=== PATIENT | female | born 1950 | race Caucasian/White ===

== ENCOUNTER 2018-11-30 14:03 | Emergency (ER) | payer MEDICARE, OTHER ==
--- NOTE | 2018-11-30 14:40 | EDM.PDOC ---
ED HPI GENERAL MEDICAL PROBLEM - General Chief Complaint: Fever Stated Complaint: HIGH FEVER Time Seen by Provider: 11/30/18 14:20 Source of Information: Reports: Patient, Family History Limitations: Reports: No Limitations - History of Present Illness INITIAL COMMENTS - FREE TEXT/NARRATIVE: 68-year-old female received chemotherapy 2 days ago, and today she has a temperature of 101. She was informed by the clinic to come to the emergency room. She is somewhat upset because she had the same thing happened to her 2 days after her chemotherapy last week, and it resolved without treatment. She has no symptoms of infection such as dysuria, cough, shortness of breath, rhinitis, diarrhea or abdominal pain. No rashes or redness of the skin. Associated Symptoms: Reports: Fever/Chills. 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: Musculoskeletal History: Reports: Arthritis Neurological History: Reports: TIA Other Neuro History: TIA 2017 Oncologic (Cancer) History: Reports: Breast, Pancreatic - Infectious Disease History Infectious Disease History: Reports: Chicken Pox, Measles, Mumps, Pertussis ( Whooping Cough), Shingles, Other (See Below) Other Infectious Disease History: polio - Past Surgical History Head Surgeries/Procedures: Reports: None HEENT Surgical History: Reports: Adenoidectomy, Cataract Surgery, Tonsillectomy Cardiovascular Surgical History: Reports: None GI Surgical History: Reports: Colonoscopy Neurological Surgical History: Reports: Other (See Below) Musculoskeletal Surgical History: Reports: Arthroscopic Knee, Hip Replacement, Shoulder Surgery, Other (See Below) Other Musculoskeletal Surgeries/Procedures:: ankles, toes Oncologic Surgical History: Reports: Biopsy of Breast, Lumpectomy Dermatological Surgical History: Reports: None Social & Family History - Tobacco Use Smoking Status *Q: Former Smoker Used Tobacco, but Quit: Yes Month/Year Tobacco Last Used: 1996 Second Hand Smoke Exposure: No - Caffeine Use Caffeine Use: Reports: Soda - Recreational Drug Use Recreational Drug Use: No ED ROS GENERAL - Review of Systems Review Of Systems: See Below Constitutional: Reports: Fever, Chills. Denies: Malaise HEENT: Reports: No Symptoms Respiratory: Reports: No Symptoms GI/Abdominal: Reports: No Symptoms : Reports: No Symptoms Skin: Reports: No Symptoms Neurological: Reports: No Symptoms. Denies: Headache ED EXAM, GENERAL - Physical Exam Exam: See Below Exam Limited By: No Limitations General Appearance: Alert, No Apparent Distress Eye Exam: Bilateral Eye: EOMI Head: Atraumatic Respiratory/Chest: No Respiratory Distress, Lungs Clear Cardiovascular: Regular Rate, Rhythm GI/Abdominal: Soft, Non-Tender Neurological: Alert, Oriented Psychiatric: Normal Affect, Normal Mood Skin Exam: Warm, Dry Course - Vital Signs Last Recorded V/S: Last Vital Signs Temp 101.1 F H 11/30/18 14:26 Pulse 78 11/30/18 14:26 Resp 16 11/30/18 14:26 BP 126/62 11/30/18 14:26 Pulse Ox 100 11/30/18 14:26 - Re-Assessments/Exams Free Text/Narrative Re-Assessment/Exam: 11/30/18 14:37 Patient strongly requested to go home and she will return in the next 24 hours if fever is persisting. She will also return if she develops shortness of breath , cough, dysuria, or other signs of infection even if the temperature does normalize. Departure - Departure Time of Disposition: 14:46 Disposition: Home, Self-Care 01 Condition: Good Clinical Impression: Mild fever - Discharge Information Instructions: Fever, Adult, [id number] Referrals: Gordy Diaz MD [Primary Care Provider] - Forms: ED Department Discharge Care Plan Goals: Continue current medications, you may treat the fever symptoms with Tylenol. Return anytime if worsening such as cough, shortness of breath, painful urination or abdominal symptoms.
== END 2018-11-30 14:46 | disposition home or self-care (01) ==
LOC: JP.ED 14:03
DX: R50.9 Fever, unspecified (principal); I10 Essential (primary) hypertension; Z88.5 Allergy status to narcotic agent; Z87.891 Personal history of nicotine dependence
CPT/HCPCS: 99282; 99283

== ENCOUNTER 2019-02-24 10:28 | Emergency (ER) | payer MEDICARE, OTHER ==
--- NOTE | 2019-02-24 11:23 | EDM.PDOC ---
ED HPI GENERAL MEDICAL PROBLEM - General Chief Complaint: Upper Extremity Injury/Pain Stated Complaint: WALKED INTO DOOR AND HURT RIGHT HAND Time Seen by Provider: 02/24/19 11:17 Source of Information: Reports: Patient History Limitations: Reports: No Limitations - History of Present Illness INITIAL COMMENTS - FREE TEXT/NARRATIVE: Patient presents for evaluation of ongoing right hand pain since accidentally striking the door of a room in her home when she was walking around during the night. The hand hurt immediately and showed some swelling. Over the following 6 days it has remained at a similar level of discomfort and swelling has not gone down. Gripping is painful as his straightening out the fingers. Onset: Sudden Onset Date: 02/18/19 Duration: Constant Location: Reports: Upper Extremity, Right Quality: Reports: Burning, Sharp Severity: Moderate Improves with: Reports: None Worsens with: Reports: None - Related Data Allergies Allergy/AdvReac Type Severity Reaction Status Date / Time codeine Allergy Nausea and Verified 02/24/19 10:53 Vomiting morphine Allergy Nausea and Verified 02/24/19 10:53 Vomiting Home Meds: Home Meds Furosemide 02/24/19 [History] Gabapentin [Neurontin] 02/24/19 [History] Ondansetron [Ondansetron ODT] 02/24/19 [History] Prochlorperazine [Compazine] 02/24/19 [History] Past Medical History HEENT History: Reports: None, Hard of Hearing Cardiovascular History: Reports: Hypertension Gastrointestinal History: Reports: None 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: Musculoskeletal History: Reports: Arthritis Neurological History: Reports: TIA Other Neuro History: TIA 2017 Oncologic (Cancer) History: Reports: Breast, Pancreatic - Infectious Disease History Infectious Disease History: Reports: Chicken Pox, Measles, Mumps, Pertussis ( Whooping Cough), Shingles, Other (See Below) Other Infectious Disease History: polio - Past Surgical History Head Surgeries/Procedures: Reports: None HEENT Surgical History: Reports: Adenoidectomy, Cataract Surgery, Tonsillectomy Cardiovascular Surgical History: Reports: None GI Surgical History: Reports: Colonoscopy Neurological Surgical History: Reports: Other (See Below) Musculoskeletal Surgical History: Reports: Arthroscopic Knee, Hip Replacement, Shoulder Surgery, Other (See Below) Other Musculoskeletal Surgeries/Procedures:: ankles, toes Oncologic Surgical History: Reports: Biopsy of Breast, Lumpectomy Dermatological Surgical History: Reports: None Social & Family History - Tobacco Use Smoking Status *Q: Never Smoker - Caffeine Use Caffeine Use: Reports: Soda Review of Systems - Review of Systems Review Of Systems: See Below Musculoskeletal: Reports: Hand Pain (Right hand pain primarily over the distal portions of metacarpals 2, 3 and 4.) ED EXAM, GENERAL - Physical Exam Exam: See Below Exam Limited By: No Limitations General Appearance: Mild Distress Extremities: Joint Swelling, Limited Range of Motion, Other (Pain with palpation over distal metacarpals to 3 and 4 and proximal portion of the middle finger of the right hand.) Course - Vital Signs Last Recorded V/S: Last Vital Signs Temp 36.7 C 02/24/19 10:57 Pulse 86 02/24/19 10:57 Resp 10 L 02/24/19 10:57 BP 103/60 02/24/19 10:57 Pulse Ox 94 L 02/24/19 10:57 - Orders/Labs/Meds Orders: Active Orders 24 hr Category Date Time Status Hand Comp Min 3V Rt [CR] Stat Exams 02/24/19 11:20 Ordered - Radiology Interpretation Free Text/Narrative:: X-ray of right hand ordered and reviewed by me shows no obvious fractures. - Re-Assessments/Exams Free Text/Narrative Re-Assessment/Exam: 02/24/19 12:07Cold packs to painful areas 20 minutes off and on. Elevate hand as much as possible. You could use previously prescribed pain medications but be careful that they don't make you too sleepy. Recheck with primary care if symptoms are not improving after another 7 days or so. Departure - Departure Time of Disposition: 12:03 Disposition: Home, Self-Care 01 Condition: Good Clinical Impression: Contusion of hand, right - Discharge Information *PRESCRIPTION DRUG MONITORING PROGRAM REVIEWED*: Not Applicable *COPY OF PRESCRIPTION DRUG MONITORING REPORT IN PATIENT LITZY: Not Applicable Instructions: Hand Contusion, [id number] Referrals: Gordy Diaz MD [Primary Care Provider] - Forms: ED Department Discharge Additional Instructions: Cold packs to painful areas 20 minutes off and on. Elevate hand as much as possible. You could use previously prescribed pain medications but be careful that they don't make you too sleepy. Recheck with primary care if symptoms are not improving after another 7 days or so. - My Orders Last 24 Hours: My Active Orders 02/24/19 11:20 Hand Comp Min 3V Rt [CR] Stat - Assessment/Plan Last 24 Hours: My Active Orders 02/24/19 11:20 Hand Comp Min 3V Rt [CR] Stat
--- NOTE | 2019-02-24 12:11 | CRLCR ---
Distal metacarpal injury. Three views of the right hand. FINDINGS: Normal alignment. No acute fracture. Degenerative change of the thumb CMC joint. The trapezium is not seen. Mild soft tissue swelling. IMPRESSION: 1. No acute fracture. Dictated by Anaya Durham MD @ Feb 24 2019 12:03PM Signed by Dr. Anaya Durham @ Feb 24 2019 12:10PM
== END 2019-02-24 12:09 | disposition home or self-care (01) ==
LOC: JP.ED 10:28
DX: S60.221A Contusion of right hand, initial encounter (principal); I10 Essential (primary) hypertension; Z86.73 Personal history of transient ischemic attack (TIA), and cerebral infarction without residual deficits; Z79.899 Other long term (current) drug therapy; Z88.5 Allergy status to narcotic agent; W22.8XXA Striking against or struck by other objects, initial encounter; Y92.009 Unspecified place in unspecified non-institutional (private) residence as the place of occurrence of the external cause
CPT/HCPCS: 73130-RT; 99283-25